=== PATIENT | male | born 1970 | race Caucasian/White ===

== ENCOUNTER 2023-03-11 09:52 | Outpatient (CLI) | payer OTHER, SELFPAY | END 2023-03-11 09:53 | disposition home or self-care (01) | LOC: LAB 09:56 | PROVIDERS: Visit Provider Radiology Radiation Oncology | DX: C09.9 Malignant neoplasm of tonsil, unspecified (principal) | CPT/HCPCS: 36415; 84443 ==

== ENCOUNTER 2023-07-14 12:09 | Outpatient (CLI) | payer OTHER, SELFPAY | END 2023-07-14 12:10 | disposition home or self-care (01) | LOC: LAB 12:13 | PROVIDERS: Visit Provider Radiology Radiation Oncology | DX: C09.9 Malignant neoplasm of tonsil, unspecified (principal); R53.83 Other fatigue | CPT/HCPCS: 36415; 84443 ==